=== PATIENT | male | born 1990 | race African-American/Black ===

== ENCOUNTER → 2016-07-03 | Outpatient (CLI) | payer OTHER | LOC: HYPER 07:13 | DX: L97.511 Non-pressure chronic ulcer of other part of right foot limited to breakdown of skin (principal); L03.115 Cellulitis of right lower limb; G82.22 Paraplegia, incomplete; E78.5 Hyperlipidemia, unspecified; Z87.891 Personal history of nicotine dependence ==

== ENCOUNTER → 2016-08-08 | Outpatient (CLI) | payer OTHER | LOC: HYPER 07-26 07:11 | DX: L97.511 Non-pressure chronic ulcer of other part of right foot limited to breakdown of skin (principal); L03.115 Cellulitis of right lower limb; G82.22 Paraplegia, incomplete; E78.5 Hyperlipidemia, unspecified; Z87.891 Personal history of nicotine dependence ==